=== PATIENT | male | born 1940 | race Caucasian/White ===

== ENCOUNTER 2018-01-16 08:58 | Outpatient (CLI) | payer MEDICARE ==
[2018-01-15 12:37] LABS: BASOPHILS % (AUTO) 0.2 % (0-1); EOSINOPHILS # (AUTO) 0.1 X10'3 (0-0.9); EOSINOPHILS % (AUTO) 1.4 % (0-6); HEMATOCRIT 45.1 % (42.0-52.0); HEMOGLOBIN 15.6 g/dl (14.0-17.9); LYMPHOCYTES # (AUTO) 1.5 X10'3 (1.1-4.8); LYMPHOCYTES % (AUTO) 19.9 % (21-51); MEAN CORPUSCULAR HEMOGLOBIN 35.1 PG (27.0-31.0); MEAN CORPUSCULAR HGB CONC 34.6 % (33.0-36.5); MEAN CORPUSCULAR VOLUME 101.3 FL (78-98); MEAN PLATELET VOLUME 8.1 FL (7.4-10.4); MONOCYTES # (AUTO) 0.7 X10'3 (0-0.9); MONOCYTES % (AUTO) 10.2 % (2-12); NEUTROPHILS % (AUTO) 68.3 % (42-75); PLATELET COUNT 178 X10'3 (140-440); RED BLOOD COUNT 4.45 X10'6 (4.70-6.10); RED CELL DISTRIBUTION WIDTH 13.7 % (11.5-14.5); WHITE BLOOD COUNT 7.3 X10'3 (4.5-11.0)
[2018-01-15 12:52] LABS: ALANINE AMINOTRANSFERASE 24 U/L (12-78); ALBUMIN 3.6 G/DL (3.4-5.0); ALKALINE PHOSPHATASE 62 IU/L (46-116); ANION GAP 12 (8-16); ASPARTATE AMINO TRANSFERASE 18 U/L (10-37); BILIRUBIN,TOTAL 0.7 MG/DL (0.1-1.0); BLOOD UREA NITROGEN 15 MG/DL (7-18); BUN/CREATININE RATIO 12.7 (5.4-32.0); CALCIUM 9.5 MG/DL (8.5-10.1); CHLORIDE 104 MMOL/L (99-107); CREATININE 1.18 MG/DL (0.60-1.10); GLUCOSE 101 MG/DL (70-104); POTASSIUM 4.1 MMOL/L (3.5-5.1); SODIUM 141 MMOL/L (135-145); TOTAL CARBON DIOXIDE 25.4 MMOL/L (24-32); TOTAL PROTEIN 7.2 G/DL (6.4-8.2); eGFR 60 ML/MIN
[2018-01-16] MEDS ORDERED: iohexol 350MG/ML 100ml bottle IV ONE (09:13)
== END 2018-01-16 23:59 | disposition home or self-care (01) ==
LOC: 64 CT 08:58
PROVIDERS: ATTEND Surgery
DX: I65.21 Occlusion and stenosis of right carotid artery (principal); H54.7 Unspecified visual loss
CPT/HCPCS: 36415; 70498; 80053; 85025; J7030; Q9967

== ENCOUNTER 2018-01-23 07:36 | Inpatient (IN) | payer MEDICARE ==
[~2018-01-23] VITALS: Ht 180.3 cm; Wt 82.1 kg
[2018-01-23] VITALS (27 sets, daily range): BP systolic 108–189; BP diastolic 54–91
[~2018-01-23 07:36] MED LIST: ASPI-1265 PO; ATOR10TA PO; famotidine 20mg tablet PO ONE; ringers solution, lacted 1,000 ML IV SCH
[2018-01-23] MEDS ORDERED: metoprolol tartrate 1mg/ml inj IV PRN (08:30)
[2018-01-23] MEDS ORDERED: regadenoson 0.4mg/5ml syringe IV PRN (08:30)
[2018-01-23] MEDS ORDERED: nitroGLYCERIN 0.4mg SUBLingual tab SL PRN (08:30)
[2018-01-23] MEDS ORDERED: CAFFEINE CITRATE 60 MG/3 ML injection vial IV PRN (08:30)
[2018-01-23] MEDS ORDERED: CAFFEINE CITRATE 60 MG/3 ML injection vial IV ONE (09:32)
[2018-01-23] MEDS ORDERED: regadenoson 0.4mg/5ml syringe IV ONE (09:32)
[2018-01-23] MEDS ORDERED: cefazolin/dext.iso 2gm/50ml 50 ML IV ONE (11:10)
[2018-01-23] MEDS ORDERED: phenylephrine inj 10 MG in normal saline 250ml IV soln 250 ML IV PRN ×2 (14:37→20:28)
[2018-01-23 15:19] LABS: PRE OP PROTIME 10.2 SECONDS (9.0-12.0)
[2018-01-23] MEDS ORDERED: heparin 10,000 units/1 ML INJ ONE (15:53)
[2018-01-23] MEDS ORDERED: LIDOcaine 1% (10mg/ml) 2ml vial ONE (15:53)
[2018-01-23] MEDS ORDERED: ceFAZolin 1000mg inj ONE (15:54)
[2018-01-23] MEDS ORDERED: LIDOcaine 1% 30ml preserv. free vial ONE (16:25)
[2018-01-23] MEDS ORDERED: albuterol 2.5 MG/3 ML nebule NEB ONE (17:00)
[2018-01-23] MEDS ORDERED: fentaNYL /PF 50mcg/ml 5ml ampule ONE (17:03)
[2018-01-23] MEDS ORDERED: esmolol 10mg/ml inj IV ONE (17:21)
[2018-01-23] MEDS ORDERED: ondansetron/PF 4mg/2ml inj ONE ×2 (17:21→20:16)
[2018-01-23] MEDS ORDERED: sevoflurane 250ml liquid IH ONE (17:21)
[2018-01-23] MEDS ORDERED: glycopyrrolate 0.2mg/ml inj ONE (20:16)
[2018-01-23] MEDS ORDERED: rocuronium 10mg/ml inj IV ONE (20:16)
[2018-01-23] MEDS ORDERED: LIDOcaine 2% 5ml jelly ONE (20:16)
[2018-01-23] MEDS ORDERED: propofol inj 20 ML IV ONE (20:16)
[2018-01-23] MEDS ORDERED: neostigmine methylsulfate 1 MG/ML 10ml vial ONE (20:16)
[2018-01-23] MEDS ORDERED: labetalol 5mg/ml 20ml inj. IV ONE (20:16)
[2018-01-23] MEDS ORDERED: epiNEPHrine 1 mg/ml inj ONE (20:16)
[2018-01-23] MEDS ORDERED: phenylephrine 10mg/ml inj. ONE (20:16)
[2018-01-23] MEDS ORDERED: nitroGLYCERIN-Tridil 50MG/D5W 250 ML IV PRN (20:28)
[2018-01-23] MEDS ORDERED: ringers solution, lacted 1,000 ML IV SCH (20:28)
[2018-01-23] MEDS ORDERED: ondansetron/PF 4mg/2ml inj IV PRN (20:30)
[2018-01-23] MEDS ORDERED: HYDROmorphone 1 mg/ml syringe IV PRN (20:30)
[2018-01-23] MEDS ORDERED: morphine 4 MG/ML inj SYRINge IV PRN (20:30)
[2018-01-23] MEDS: HYDROmorphone 1 mg/ml syringe IV PRN (20:34)
[2018-01-23] MEDS ORDERED: aspirin 325mg tablet PO ONE (20:40)
[2018-01-23] MEDS ORDERED: clopidogrel 75mg tablet PO SCH (21:00)
[2018-01-23] MEDS: HYDROcodone/acetaminophen 10/325mg tab PO PRN (21:49)
[2018-01-23] MEDS: potassium CL 20mEq in D5-1/2NS 1,000 ML IV SCH (21:49)
[2018-01-23] MEDS: ceFAZolin 1GM/D5W- ADD-VANTAGE 50 ML IV SCH (23:57)
[2018-01-24] VITALS (24 sets, daily range): BP systolic 116–170; BP diastolic 52–87
[2018-01-24] MEDS ORDERED: ceFAZolin inj. 1,000 MG in dextrose 5%-water 50ml 50 ML IV SCH ×2
[2018-01-24] MEDS: HYDROmorphone 1 mg/ml syringe IV PRN (00:25)
[2018-01-24] MEDS: potassium CL 20mEq in D5-1/2NS 1,000 ML IV SCH ×2 (05:23→14:22)
[2018-01-24] MEDS: ceFAZolin 1GM/D5W- ADD-VANTAGE 50 ML IV SCH (07:33)
[2018-01-24] MEDS: clopidogrel 75mg tablet PO SCH (07:33)
[2018-01-24 11:32] LABS: BASOPHILS % (AUTO) 0.1 % (0-1); EOSINOPHILS # (AUTO) 0.1 X10'3 (0-0.9); EOSINOPHILS % (AUTO) 1.7 % (0-6); HEMATOCRIT 35.4 % (42.0-52.0); HEMOGLOBIN 12.2 g/dl (14.0-17.9); LYMPHOCYTES % (AUTO) 14.3 % (21-51); MEAN CORPUSCULAR HGB CONC 34.4 % (33.0-36.5); MEAN CORPUSCULAR VOLUME 101.7 FL (78-98); MEAN PLATELET VOLUME 8.6 FL (7.4-10.4); MONOCYTES # (AUTO) 0.5 X10'3 (0-0.9); MONOCYTES % (AUTO) 6.7 % (2-12); NEUTROPHILS # (AUTO) 5.3 X10'3 (1.8-7.7); NEUTROPHILS % (AUTO) 77.2 % (42-75); PLATELET COUNT 163 X10'3 (140-440); RED BLOOD COUNT 3.48 X10'6 (4.70-6.10); RED CELL DISTRIBUTION WIDTH 13.2 % (11.5-14.5); WHITE BLOOD COUNT 6.9 X10'3 (4.5-11.0)
[2018-01-24] MEDS: amLODIPine 2.5mg tablet PO SCH (12:05)
[2018-01-24] MEDS: HYDROcodone/acetaminophen 10/325mg tab PO PRN ×2 (12:05→19:21)
[2018-01-25] VITALS (26 sets, daily range): BP systolic 124–182; BP diastolic 56–90
[2018-01-25] MEDS: nitroGLYCERIN-Tridil 50MG/D5W 250 ML IV PRN ×2 (05:44→12:00)
[2018-01-25 05:53] LABS: BASOPHILS % (AUTO) 0.3 % (0-1); EOSINOPHILS # (AUTO) 0.2 X10'3 (0-0.9); EOSINOPHILS % (AUTO) 2.6 % (0-6); HEMATOCRIT 32.7 % (42.0-52.0); HEMOGLOBIN 11.2 g/dl (14.0-17.9); LYMPHOCYTES # (AUTO) 1.3 X10'3 (1.1-4.8); LYMPHOCYTES % (AUTO) 18.6 % (21-51); MEAN CORPUSCULAR HEMOGLOBIN 34.6 PG (27.0-31.0); MEAN CORPUSCULAR HGB CONC 34.3 % (33.0-36.5); MEAN CORPUSCULAR VOLUME 100.9 FL (78-98); MEAN PLATELET VOLUME 8.9 FL (7.4-10.4); MONOCYTES # (AUTO) 0.7 X10'3 (0-0.9); MONOCYTES % (AUTO) 10.9 % (2-12); NEUTROPHILS # (AUTO) 4.6 X10'3 (1.8-7.7); NEUTROPHILS % (AUTO) 67.6 % (42-75); PLATELET COUNT 149 X10'3 (140-440); RED BLOOD COUNT 3.24 X10'6 (4.70-6.10); RED CELL DISTRIBUTION WIDTH 12.9 % (11.5-14.5); WHITE BLOOD COUNT 6.8 X10'3 (4.5-11.0)
[2018-01-25 06:26] LABS: ALANINE AMINOTRANSFERASE 16 U/L (12-78); ALBUMIN 2.4 G/DL (3.4-5.0); ALBUMIN/GLOBULIN RATIO 0.8 (1.1-1.5); ALKALINE PHOSPHATASE 36 IU/L (46-116); ANION GAP 9 (8-16); ASPARTATE AMINO TRANSFERASE 14 U/L (10-37); BLOOD UREA NITROGEN 8 MG/DL (7-18); BUN/CREATININE RATIO 8.9 (5.4-32.0); CALCIUM 7.7 MG/DL (8.5-10.1); CHLORIDE 102 MMOL/L (99-107); GLUCOSE 112 MG/DL (70-104); MAGNESIUM 1.4 MG/DL (1.5-2.4); POTASSIUM 3.7 MMOL/L (3.5-5.1); SODIUM 136 MMOL/L (135-145); TOTAL CARBON DIOXIDE 25.3 MMOL/L (24-32); TOTAL PROTEIN 5.3 G/DL (6.4-8.2); eGFR 82 ML/MIN
[2018-01-25] MEDS: HYDROcodone/acetaminophen 10/325mg tab PO PRN (06:47)
[2018-01-25] MEDS: aspirin 81mg tab.chew PO SCH (07:56)
[2018-01-25] MEDS: amLODIPine 2.5mg tablet PO SCH ×2 (07:56→19:42)
[2018-01-25] MEDS: atorvastatin 10mg tablet PO SCH (07:56)
[2018-01-25] MEDS: clopidogrel 75mg tablet PO SCH (07:56)
[2018-01-25] MEDS: carVEDilol 3.125mg tablet PO SCH ×2 (12:52→19:43)
[2018-01-25] MEDS ORDERED: TERA2CAP4 PO (14:58)
[2018-01-25] MEDS ORDERED: magnesium 4gm in 100ml NS 100 ML IV PRN (18:50)
[2018-01-25] MEDS ORDERED: potassium Cl 20 mEq SR tablet PO PRN ×2 (18:50)
[2018-01-25] MEDS ORDERED: magnesium 1gm/100ml D5W IVPB 100 ML IV PRN (18:50)
[2018-01-25] MEDS: K and/or MAG REPLACEMENT MC SCH (19:00)
[2018-01-25] MEDS: magnesium Cl slow-release 64mg tablet PO PRN (19:43)
[2018-01-26] VITALS (24 sets, daily range): BP systolic 118–177; BP diastolic 64–100
[2018-01-26] MEDS: nitroGLYCERIN-Tridil 50MG/D5W 250 ML IV PRN ×2 (00:06→18:35)
[2018-01-26 05:52] LABS: MAGNESIUM 1.6 MG/DL (1.5-2.4); POTASSIUM 4.2 MMOL/L (3.5-5.1)
[2018-01-26] MEDS: atorvastatin 10mg tablet PO SCH (08:17)
[2018-01-26] MEDS: aspirin 81mg tab.chew PO SCH (08:17)
[2018-01-26] MEDS: amLODIPine 2.5mg tablet PO SCH (08:17)
[2018-01-26] MEDS: clopidogrel 75mg tablet PO SCH (08:17)
[2018-01-26] MEDS: carVEDilol 3.125mg tablet PO SCH (08:17)
[2018-01-26] MEDS: magnesium Cl slow-release 64mg tablet PO PRN (08:30)
[2018-01-26] MEDS ORDERED: carvedilol 6.25mg tablet PO ONE (12:17)
[2018-01-26] MEDS ORDERED: LORazepam 0.5 MG tablet PO PRN (12:30)
[2018-01-26] MEDS ORDERED: amLODIPine 2.5mg tablet PO ONE (12:37)
[2018-01-26] MEDS: potassium CL 20mEq in D5-1/2NS 1,000 ML IV SCH (14:22)
[2018-01-26] MEDS: K and/or MAG REPLACEMENT MC SCH (18:36)
[2018-01-26] MEDS: amLODIPine 5mg tablet PO SCH (19:43)
[2018-01-26] MEDS: carVEDilol 12.5mg tablet PO SCH (19:43)
[2018-01-27] VITALS (19 sets, daily range): BP systolic 90–168; BP diastolic 60–88
[2018-01-27 05:15] LABS: HEMATOCRIT 37.5 % (42.0-52.0); HEMOGLOBIN 13.1 g/dl (14.0-17.9); MEAN CORPUSCULAR HEMOGLOBIN 35.5 PG (27.0-31.0); MEAN CORPUSCULAR VOLUME 101.4 FL (78-98); MEAN PLATELET VOLUME 9.6 FL (7.4-10.4); PLATELET COUNT 168 X10'3 (140-440); RED CELL DISTRIBUTION WIDTH 12.5 % (11.5-14.5); WHITE BLOOD COUNT 7.1 X10'3 (4.5-11.0)
[2018-01-27 05:31] LABS: ALBUMIN 2.8 G/DL (3.4-5.0); ANION GAP 10 (8-16); BLOOD UREA NITROGEN 8 MG/DL (7-18); BUN/CREATININE RATIO 9.1 (5.4-32.0); CALCIUM 8.9 MG/DL (8.5-10.1); CHLORIDE 99 MMOL/L (99-107); CREATININE 0.88 MG/DL (0.60-1.10); GLUCOSE 108 MG/DL (70-104); MAGNESIUM 1.6 MG/DL (1.5-2.4); SODIUM 132 MMOL/L (135-145); TOTAL CARBON DIOXIDE 22.8 MMOL/L (24-32); eGFR 84 ML/MIN
[2018-01-27] MEDS: aspirin 81mg tab.chew PO SCH (07:57)
[2018-01-27] MEDS: amLODIPine 5mg tablet PO SCH ×2 (07:57→19:35)
[2018-01-27] MEDS: carVEDilol 12.5mg tablet PO SCH ×2 (07:57→19:35)
[2018-01-27] MEDS: clopidogrel 75mg tablet PO SCH (07:57)
[2018-01-27] MEDS: atorvastatin 10mg tablet PO SCH (07:57)
[2018-01-27] MEDS: K and/or MAG REPLACEMENT MC SCH (08:00)
[2018-01-27] MEDS ORDERED: nitroGLYCERIN 0.4mg/hour patch TD SCH (15:45)
[2018-01-27] MEDS ORDERED: ATOR10TA PO ×3 (18:49→20:07)
[2018-01-27] MEDS ORDERED: CARV-50 PO ×2 (18:49→20:06)
[2018-01-27] MEDS ORDERED: AMLO5TAB16 PO ×2 (18:49→20:06)
[2018-01-27] MEDS ORDERED: ASPI-1265 PO ×3 (18:49→20:07)
[2018-01-27] MEDS ORDERED: CLOP75TA35 PO ×2 (18:49→20:06)
[2018-01-27] MEDS ORDERED: NIT10P TD ×3 (18:54→20:03)
[2018-01-27] MEDS ORDERED: MAGN64TA10 PO (19:53)
[2018-01-27] MEDS ORDERED: K and/or MAG REPLACEMENT MC (19:53)
[2018-01-27] MEDS ORDERED: HYDR1DIS4 IV (19:53)
[2018-01-27] MEDS ORDERED: HYDR-3972 PO (19:53)
[2018-01-27] MEDS ORDERED: ATI0.5T PO (19:53)
[2018-01-27] MEDS ORDERED: POTA20TA10 PO (19:53)
== END 2018-01-27 19:40 | disposition home or self-care (01) | DRG 39 ==
LOC: PAS IN 07:36 → EDSTATUS 13:00 → ICU 2S 21:11
PROVIDERS: ADMIT Surgery; ATTEND Surgery
PROC: 03CH0ZZ Extirpation of Matter from Right Common Carotid Artery, Open Approach (ICD-10-PCS; 2018-01-23)
PROC: 03CM0ZZ Extirpation of Matter from Right External Carotid Artery, Open Approach (ICD-10-PCS; 2018-01-23)
PROC: 03UK0KZ Supplement Right Internal Carotid Artery with Nonautologous Tissue Substitute, Open Approach (ICD-10-PCS; 2018-01-23)
PROC: 4A02XM4 Measurement of Cardiac Total Activity, External Approach (ICD-10-PCS; 2018-01-23)
PROC: 3E073KZ Introduction of Other Diagnostic Substance into Coronary Artery, Percutaneous Approach (ICD-10-PCS; 2018-01-23)
PROC: 4A10X4G Monitoring of Central Nervous Electrical Activity, Intraoperative, External Approach (ICD-10-PCS; 2018-01-23)
PROC: 03CK0ZZ Extirpation of Matter from Right Internal Carotid Artery, Open Approach (ICD-10-PCS; principal; 2018-01-23 17:21)
DX: I65.21 Occlusion and stenosis of right carotid artery (principal); I35.0 Nonrheumatic aortic (valve) stenosis; I10 Essential (primary) hypertension; E78.5 Hyperlipidemia, unspecified; R93.1 Abnormal findings on diagnostic imaging of heart and coronary circulation; Z88.2 Allergy status to sulfonamides; Z91.19 Patient's noncompliance with other medical treatment and regimen; Z79.82 Long term (current) use of aspirin; Z79.899 Other long term (current) drug therapy; Z86.73 Personal history of transient ischemic attack (TIA), and cerebral infarction without residual deficits; Z87.891 Personal history of nicotine dependence
CPT/HCPCS: 36415; 71045; 78452; 80048; 80053; 83735; 84132; 84484; 85025; 85027; 85610; 85730; 86885; 86900; 86901; 87070; 88300; 93017; 93306; 94640; 94760; 95813; 95816; A6213; A6257; A6258; A6449; A7000; A9500; C1768; C1887; J0171; J0690; J1170; J1644; J2370; J2405; J2704; J2710; J2785; J3010; J3490; J7030; J7060; J7120

== ENCOUNTER 2018-03-26 05:36 | Inpatient (IN) | payer MEDICARE ==
[2018-03-24 14:42] LABS: BASOPHILS % (AUTO) 0.7 % (0-1); EOSINOPHILS # (AUTO) 0.2 X10'3 (0-0.9); EOSINOPHILS % (AUTO) 3.3 % (0-6); LYMPHOCYTES # (AUTO) 1.5 X10'3 (1.1-4.8); MEAN CORPUSCULAR HEMOGLOBIN 34.9 PG (27.0-31.0); MEAN CORPUSCULAR HGB CONC 34.1 % (33.0-36.5); MEAN CORPUSCULAR VOLUME 102.2 FL (78-98); MEAN PLATELET VOLUME 8.2 FL (7.4-10.4); MONOCYTES # (AUTO) 0.6 X10'3 (0-0.9); MONOCYTES % (AUTO) 10.1 % (2-12); NEUTROPHILS # (AUTO) 3.9 X10'3 (1.8-7.7); NEUTROPHILS % (AUTO) 61.9 % (42-75); PRE OP HEMATOCRIT 40.3 % (42.0-52.0); PRE OP HEMOGLOBIN 13.7 g/dL (14.0-17.9); PRE OP PLATELET COUNT 260 X10'3 (140-440); RED BLOOD COUNT 3.94 X10'6 (4.70-6.10); RED CELL DISTRIBUTION WIDTH 14.6 % (11.5-14.5)
[2018-03-24 14:43] LABS: CLARITY,URINE CLEAR (Clear); COLOR,URINE YELLOW (Yellow); GLUCOSE, URINE NEGATIVE (Neg); KETONES,URINE NEGATIVE (Neg); LEUKOCYTE ESTERASE ,URINE NEGATIVE (Neg); NITRITES, URINE NEGATIVE (Neg); OCCULT BLOOD,URINE NEGATIVE (Neg); PROTEIN,URINE NEGATIVE (Neg)
[2018-03-24 14:45] LABS: UA COLLECTION TYPE CLN CATCH MIDSTREAM
[2018-03-24 14:53] LABS: PRE OP INR 0.9 INR; PRE OP PROTIME 9.5 SECONDS (9.0-12.0)
[2018-03-24 14:59] LABS: ALBUMIN 3.6 G/DL (3.4-5.0); ALKALINE PHOSPHATASE 70 IU/L (46-116); BLOOD UREA NITROGEN 13 MG/DL (7-18); BUN/CREATININE RATIO 12.7 (5.4-32.0); CALCIUM 9.1 MG/DL (8.5-10.1); CHLORIDE 104 MMOL/L (99-107); CREATININE 1.02 MG/DL (0.60-1.10); PRE OP ALT 24 U/L (30-65); PRE OP ANION GAP 9 (8-16); PRE OP AST 20 U/L (10-37); PRE OP BILIRUB, TOTAL 0.7 MG/DL (0.0-1.0); PRE OP GLUCOSE 103 MG/DL (70-104); PRE OP POTASSIUM 3.8 MMOL/L (3.4-5.1); PRE OP SODIUM 140 MMOL/L (135-145); TOTAL CARBON DIOXIDE 27.3 MMOL/L (24-32); TOTAL PROTEIN 7.3 G/DL (6.4-8.2); eGFR 71 ML/MIN
[2018-03-24 15:10] LABS: HEMOGLOBIN A1C 4.6 % (4.5-6.2)
[2018-03-25 05:16] LABS: ABG BASE EXCESS 2.2 mmol/L (-2.0-3.0); ABG HCO3 25.7 mmol/L (22.0-26.0); ABG PCO2 (T) 36.6 mmHg (35.0-48.0); ABG PH (T) 7.465 (7.350-7.450); ABG PO2 (T) 69.1 mmHg (83-108); ALLEN'S TEST Positive; FCOHb 4.9 % (0.5-1.5); FMetHb 0.3 % (0.3-1.12); FO2Hb 90.1 % (94-100); TOTAL HEMOGLOBIN 13.6 G/dl (14.0-18.0)
[~2018-03-26] VITALS: Ht 152.4 cm; Wt 73.7 kg
[2018-03-26] VITALS (19 sets, daily range): BP systolic 111–168; BP diastolic 42–70
[2018-03-26] MEDS: insulin regular, human 100 UNIT in normal saline 100ml IV soln 99 ML IV SCH ×8 (05:30→20:18)
[~2018-03-26 05:36] MED LIST changes: +AMLO5TAB16 PO; +ASPI-1053 PO; -ASPI-1265 PO; -ATOR10TA PO; +ATOR10TA70 PO; +CARV-50 PO; +CLOP75TA35 PO; +Cefazolin 2GM/50ML dext iso,osmotic IVPB IV ONE; +DOCUMENT DATE & TIME OF BETA-BLOCKER PO ONE; +ERGO500014 PO; +LORazepam 2 mg/ml vial IV ONE; +TERA2CAP4 PO; +VANCOMYCIN INJ 1000 MG in NORMAL SALINE 250ml IV.SOLN IV ONE; +albuterol 2.5 MG/3 ML nebule NEB ONE; +dextrose 50%-water 50ml dispensing syringe IV PRN; +insulin Lispro (HumaLOG) vial - multi-dose SQ PRN; +metoprolol tartrate 12.5mg (1/2 tablet) PO ONE; +mupirocin 2% nasal ointment 1gm UD NS ONE
[2018-03-26] MEDS ORDERED: LIDOcaine 1% (10mg/ml) 2ml vial ONE (05:45)
[2018-03-26] MEDS ORDERED: phenylephrine 10mg/ml inj. ONE ×2 (06:55)
[2018-03-26] MEDS ORDERED: heparin 10,000 units/1 ML INJ ONE (06:55)
[2018-03-26] MEDS ORDERED: potassium Cl 2 mEq/ml inj IV ONE (06:55)
[2018-03-26] MEDS ORDERED: NORepinephrine bitartrate 8 MG in NS 250 ML BAG (32 mcg/ml) IV ONE (06:55)
[2018-03-26] MEDS ORDERED: sevoflurane 250ml liquid IH ONE (06:55)
[2018-03-26] MEDS ORDERED: sodium bicarbonate (8.4%) 1 mEq/ml syringe ONE (06:55)
[2018-03-26] MEDS ORDERED: heparin 1,000 units/ml 10ml inj ONE (06:55)
[2018-03-26] MEDS ORDERED: magnesium sulf 1 GM/2 ML ONE (06:55)
[2018-03-26] MEDS ORDERED: LIDOcaine 2% (20 mg/ml) 5ml cardiac syringe ONE (06:55)
[2018-03-26] MEDS ORDERED: methylPREDNISolone sod succ 1000mg vial ONE (06:55)
[2018-03-26] MEDS ORDERED: protamine sulf. 10mg/ml inj. IV ONE (06:55)
[2018-03-26] MEDS ORDERED: aminocaproic acid 250 MG/1 ML inj. ONE (06:55)
[2018-03-26] MEDS ORDERED: calcium chloride 100 MG/1 ML inj IV ONE (06:55)
[2018-03-26] MEDS ORDERED: albumin (human) 25% 100 ML IV solution IV ONE (06:55)
[2018-03-26] MEDS ORDERED: SUFENTANIL CITRATE 50 MCG/ML 2ml ampule IV ONE (07:01)
[2018-03-26] MEDS ORDERED: MIDAZolam 1mg/ml 10ml vial ONE (07:01)
[2018-03-26] MEDS ORDERED: etomidate 2mg/ml inj. ONE (07:02)
[2018-03-26] MEDS ORDERED: pancuronium br 1mg/ml inj IV ONE (07:02)
[2018-03-26 07:41] LABS: ABG BASE EXCESS -3.8 mmol/L (-2.0-3.0); ABG HCO3 20.7 mmol/L (22.0-26.0); ABG OXYGEN SATURATION 99.9 % (95-98); ABG PCO2 35.4 mmHg (35.0-45.0); ABG PH 7.384 (7.350-7.450); ABG PO2 483.4 mmHg (60.0-100.0); CL (ABG) 104 mmol/L (99-107); FCOHb 1.1 % (0.5-1.5); FMetHb 0.1 % (0.3-1.12); FO2Hb 98.7 % (94-100); GLUCOSE (ABG) 96 mg/dl (70-105); IONIZED CA (ABG) 1.09 mmol/L (1.03-1.32); K (ABG) 3.6 mmol/L (3.3-5.1); NA (ABG) 134 mmol/L (135-145); TOTAL HEMOGLOBIN 12.5 G/dl (14.0-18.0)
[2018-03-26 08:06] LABS: ACT @ 1.70 U 301 SEC (193-297); ACT @ 2.84 U 435 SEC (260-420); BASELINE ACT 144 SEC (101-148); PATIENT WEIGHT 77.0k KG
[2018-03-26] MEDS ORDERED: papaverine 30 mg/ml 2ml inj. IA ONE (08:22)
[2018-03-26 08:31] LABS: ABG BASE EXCESS VENOUS -2.8 mmol/L; ABG PO2 VENOUS 53.5 mmHg; CL (ABG) 104 mmol/L (99-107); FCOHb VENOUS 0.8 %; FHHb VENOUS 16.5 %; FMetHb VENOUS 0.3 %; FO2Hb VENOUS 82.4 %; GLUCOSE (ABG) 83 mg/dl (70-105); IONIZED CA (ABG) 1.09 mmol/L (1.03-1.32); K (ABG) 3.5 mmol/L (3.3-5.1); NA (ABG) 135 mmol/L (135-145); TOTAL HEMOGLOBIN 11.4 G/dl (14.0-18.0)
[2018-03-26 09:00] LABS: ABG BASE EXCESS -2.4 mmol/L (-2.0-3.0); ABG OXYGEN SATURATION 99.6 % (95-98); ABG PCO2 35.8 mmHg (35.0-45.0); ABG PH 7.406 (7.350-7.450); ABG PO2 406.6 mmHg (60.0-100.0); CL (ABG) 103 mmol/L (99-107); FMetHb 0.3 % (0.3-1.12); FO2Hb 98.3 % (94-100); GLUCOSE (ABG) 80 mg/dl (70-105); IONIZED CA (ABG) 0.96 mmol/L (1.03-1.32); K (ABG) 4.5 mmol/L (3.3-5.1); NA (ABG) 131 mmol/L (135-145)
[2018-03-26 09:21] LABS: ABG BASE EXCESS 0.9 mmol/L (-2.0-3.0); ABG HCO3 26.8 mmol/L (22.0-26.0); ABG OXYGEN SATURATION 99.5 % (95-98); ABG PCO2 49.6 mmHg (35.0-45.0); ABG PO2 392.9 mmHg (60.0-100.0); CL (ABG) 103 mmol/L (99-107); FCOHb 0.7 % (0.5-1.5); FMetHb 0.2 % (0.3-1.12); FO2Hb 98.6 % (94-100); GLUCOSE (ABG) 98 mg/dl (70-105); IONIZED CA (ABG) 0.98 mmol/L (1.03-1.32); K (ABG) 4.2 mmol/L (3.3-5.1); NA (ABG) 133 mmol/L (135-145); TOTAL HEMOGLOBIN 8.6 G/dl (14.0-18.0)
[2018-03-26 09:40] LABS: ABG BASE EXCESS -1.1 mmol/L (-2.0-3.0); ABG HCO3 25.6 mmol/L (22.0-26.0); ABG OXYGEN SATURATION 99.5 % (95-98); ABG PCO2 53.8 mmHg (35.0-45.0); ABG PH 7.296 (7.350-7.450); CL (ABG) 103 mmol/L (99-107); FCOHb 0.6 % (0.5-1.5); FMetHb 0.3 % (0.3-1.12); FO2Hb 98.6 % (94-100); GLUCOSE (ABG) 109 mg/dl (70-105); IONIZED CA (ABG) 1.01 mmol/L (1.03-1.32); K (ABG) 4.3 mmol/L (3.3-5.1); NA (ABG) 134 mmol/L (135-145); TOTAL HEMOGLOBIN 8.8 G/dl (14.0-18.0)
[2018-03-26 09:46] LABS: ABG BASE EXCESS 13.4 mmol/L (-2.0-3.0); ABG HCO3 38.7 mmol/L (22.0-26.0); ABG OXYGEN SATURATION 99.1 % (95-98); ABG PH 7.465 (7.350-7.450); ABG PO2 347.7 mmHg (60.0-100.0); CL (ABG) 101 mmol/L (99-107); FCOHb 0.4 % (0.5-1.5); FMetHb 0.3 % (0.3-1.12); FO2Hb 98.4 % (94-100); GLUCOSE (ABG) 106 mg/dl (70-105); IONIZED CA (ABG) 0.86 mmol/L (1.03-1.32); NA (ABG) 144 mmol/L (135-145)
[2018-03-26 10:10] LABS: ABG BASE EXCESS 0.3 mmol/L (-2.0-3.0); ABG HCO3 23.3 mmol/L (22.0-26.0); ABG OXYGEN SATURATION 99.4 % (95-98); ABG PCO2 30.5 mmHg (35.0-45.0); ABG PH 7.501 (7.350-7.450); ABG PO2 408.2 mmHg (60.0-100.0); CL (ABG) 103 mmol/L (99-107); FCOHb 0.9 % (0.5-1.5); FMetHb 0.6 % (0.3-1.12); FO2Hb 97.9 % (94-100); GLUCOSE (ABG) 107 mg/dl (70-105); K (ABG) 4.6 mmol/L (3.3-5.1); NA (ABG) 131 mmol/L (135-145); TOTAL HEMOGLOBIN 7.3 G/dl (14.0-18.0)
[2018-03-26] MEDS ORDERED: albumin (Human) 5% 250ml 250 ML IV ONE ×2 (10:32→10:48)
[2018-03-26] MEDS ORDERED: epiNEPHrine 1 mg/ml inj ONE (10:32)
[2018-03-26] MEDS ORDERED: DOPamine 400mg/D5W 250ml 250 ML IV PRN (11:12)
[2018-03-26] MEDS ORDERED: niCARDipine/sod cl 20mg/200ml 200 ML IV PRN (11:12)
[2018-03-26] MEDS ORDERED: nitroGLYCERIN-Tridil 50MG/D5W 250 ML IV PRN (11:12)
[2018-03-26] MEDS ORDERED: NORepinephrine 8mg/ 250ml NS 250 ML IV PRN (11:12)
[2018-03-26] MEDS ORDERED: morphine 4 MG/ML inj SYRINge IV PRN (11:15)
[2018-03-26] MEDS ORDERED: sodium phosphate inj. 15 MMOL in dextrose 5%-water 150 ML IV PRN (11:15)
[2018-03-26] MEDS ORDERED: acetaminophen 325mg tablet PO PRN (11:15)
[2018-03-26] MEDS ORDERED: magnesium hydroxide 30ml (MOM) UD suspension PO PRN (11:15)
[2018-03-26] MEDS ORDERED: normal saline 250ml IV soln 250 ML IV PRN (11:15)
[2018-03-26] MEDS ORDERED: potassium Cl 20mEq/100mL bag 100 ML IV PRN ×3 (11:15)
[2018-03-26] MEDS ORDERED: insulin regular, human inj. 100 UNITS in normal saline 100ml IV soln 100 ML IV SCH ×2 (11:15)
[2018-03-26] MEDS ORDERED: Neutra Phos packet PO PRN (11:15)
[2018-03-26] MEDS ORDERED: magnesium 4gm in 100ml NS 100 ML IV PRN (11:15)
[2018-03-26] MEDS ORDERED: ondansetron/PF 4mg/2ml inj IV PRN (11:15)
[2018-03-26] MEDS ORDERED: dextrose 50%-water 50ml dispensing syringe IV PRN (11:15)
[2018-03-26] MEDS ORDERED: magnesium 1gm/100ml D5W IVPB 100 ML IV PRN (11:15)
[2018-03-26] MEDS ORDERED: metoclopramide 5 mg/ml inj IV PRN (11:15)
[2018-03-26] MEDS ORDERED: HYDROcodone/acetaminophen 10/325mg tab PO PRN (11:15)
[2018-03-26] MEDS ORDERED: sodium phosphate inj. 30 MMOL in dextrose 5%-water 250 ML IV PRN (11:15)
[2018-03-26] MEDS ORDERED: albumin (Human) 5% 250ml 500 ML IV ONE (11:22)
[2018-03-26] MEDS: albumin (Human) 5% 250ml 250 ML IV PRN ×3 (11:25→14:49)
[2018-03-26 11:36] LABS: ABG BASE EXCESS -1.3 mmol/L (-2.0-3.0); ABG HCO3 22.6 mmol/L (22.0-26.0); ABG OXYGEN SATURATION 99.1 % (95-98); ABG PH (T) 7.428 (7.350-7.450); ABG PO2 (T) 376.2 mmHg (83-108); FCOHb 0.3 % (0.5-1.5); FMetHb 0.3 % (0.3-1.12); FO2Hb 98.5 % (94-100); PEEP 5 cm H2O; RESPIRATORY RATE 12 b/min; TIDAL VOLUME 600 mL; TOTAL HEMOGLOBIN 11.4 G/dl (14.0-18.0)
[2018-03-26 11:45] LABS: BASOPHILS % (AUTO) 0.3 % (0-1); EOSINOPHILS # (AUTO) 0.1 X10'3 (0-0.9); EOSINOPHILS % (AUTO) 0.9 % (0-6); HEMATOCRIT 30.5 % (42.0-52.0); HEMOGLOBIN 10.6 g/dl (14.0-17.9); LYMPHOCYTES # (AUTO) 0.6 X10'3 (1.1-4.8); LYMPHOCYTES % (AUTO) 7.8 % (21-51); MEAN CORPUSCULAR HEMOGLOBIN 36.2 PG (27.0-31.0); MEAN CORPUSCULAR VOLUME 103.4 FL (78-98); MEAN PLATELET VOLUME 8.1 FL (7.4-10.4); MONOCYTES # (AUTO) 0.4 X10'3 (0-0.9); MONOCYTES % (AUTO) 4.8 % (2-12); NEUTROPHILS # (AUTO) 6.4 X10'3 (1.8-7.7); NEUTROPHILS % (AUTO) 86.2 % (42-75); PLATELET COUNT 123 X10'3 (140-440); RED BLOOD COUNT 2.94 X10'6 (4.70-6.10); RED CELL DISTRIBUTION WIDTH 13.4 % (11.5-14.5); WHITE BLOOD COUNT 7.5 X10'3 (4.5-11.0)
[2018-03-26 11:48] LABS: INR 1.1 INR; PARTIAL THROMBOPLASTIN TIME 30 SECONDS (22-32); PROTHROMBIN TIME 11.6 SECONDS (9.0-12.0)
[2018-03-26 11:55] LABS: ACTIVATED CLOTTING TIME 120 SEC (101-148)
[2018-03-26 12:04] LABS: ALANINE AMINOTRANSFERASE 16 U/L (12-78); ALBUMIN 2.6 G/DL (3.4-5.0); ALBUMIN/GLOBULIN RATIO 1.4 (1.1-1.5); ALKALINE PHOSPHATASE 35 IU/L (46-116); ANION GAP 12 (8-16); ASPARTATE AMINO TRANSFERASE 35 U/L (10-37); BILIRUBIN,TOTAL 0.6 MG/DL (0.1-1.0); BLOOD UREA NITROGEN 13 MG/DL (7-18); BUN/CREATININE RATIO 14.4 (5.4-32.0); CALCIUM 7.7 MG/DL (8.5-10.1); CHLORIDE 106 MMOL/L (99-107); GLUCOSE 121 MG/DL (70-104); MAGNESIUM 3.2 MG/DL (1.5-2.4); PHOSPHORUS 2.6 MG/DL (2.3-4.5); SODIUM 140 MMOL/L (135-145); TOTAL CARBON DIOXIDE 22.3 MMOL/L (24-32); TOTAL PROTEIN 4.4 G/DL (6.4-8.2); eGFR 82 ML/MIN
[2018-03-26 12:06] LABS: POTASSIUM 4.5 MMOL/L (3.5-5.1)
[2018-03-26] MEDS: sodium chloride 0.45% 1,000 ML IV SCH (12:50)
[2018-03-26] MEDS: insulin Lispro (HumaLOG) vial - multi-dose SQ SCH ×2 (12:51→17:49)
[2018-03-26] MEDS: morphine 4 MG/ML inj SYRINge IV PRN ×3 (15:17→22:05)
[2018-03-26] MEDS: ceFAZolin 1GM/D5W- ADD-VANTAGE 50 ML IV SCH (16:26)
[2018-03-26 17:28] LABS: BASOPHILS % (AUTO) 0 % (0-1); EOSINOPHILS % (AUTO) 0 % (0-6); HEMATOCRIT 26.7 % (42.0-52.0); LYMPHOCYTES # (AUTO) 0.4 X10'3 (1.1-4.8); LYMPHOCYTES % (AUTO) 5.8 % (21-51); MEAN CORPUSCULAR HEMOGLOBIN 34.9 PG (27.0-31.0); MEAN CORPUSCULAR HGB CONC 33.8 % (33.0-36.5); MEAN CORPUSCULAR VOLUME 103.1 FL (78-98); MEAN PLATELET VOLUME 8.2 FL (7.4-10.4); MONOCYTES # (AUTO) 0.3 X10'3 (0-0.9); MONOCYTES % (AUTO) 4.5 % (2-12); NEUTROPHILS # (AUTO) 6.8 X10'3 (1.8-7.7); NEUTROPHILS % (AUTO) 89.7 % (42-75); PLATELET COUNT 110 X10'3 (140-440); RED BLOOD COUNT 2.59 X10'6 (4.70-6.10); RED CELL DISTRIBUTION WIDTH 14.8 % (11.5-14.5); WHITE BLOOD COUNT 7.6 X10'3 (4.5-11.0)
[2018-03-26 17:41] LABS: ALBUMIN 3.4 G/DL (3.4-5.0); ANION GAP 10 (8-16); BLOOD UREA NITROGEN 17 MG/DL (7-18); CALCIUM 7.8 MG/DL (8.5-10.1); CHLORIDE 108 MMOL/L (99-107); CREATININE 1.06 MG/DL (0.60-1.10); GLUCOSE 122 MG/DL (70-104); SODIUM 144 MMOL/L (135-145); eGFR 68 ML/MIN
[2018-03-26 18:53] LABS: POTASSIUM 4.4 MMOL/L (3.5-5.1)
[2018-03-26] MEDS: docusate sod 100mg capsule PO SCH (19:28)
[2018-03-26] MEDS: mupirocin 2% nasal ointment 1gm UD NS SCH (19:45)
[2018-03-26] MEDS: vancomycin/NS 1 GM ADD-VANTAGE 250 ML IV SCH (21:05)
[2018-03-26 21:55] LABS: ABG BASE EXCESS -3.4 mmol/L (-2.0-3.0); ABG HCO3 20.3 mmol/L (22.0-26.0); ABG OXYGEN SATURATION 96.9 % (95-98); ABG PCO2 (T) 30.6 mmHg (35.0-48.0); ABG PH (T) 7.437 (7.350-7.450); ABG PO2 (T) 97.6 mmHg (83-108); FCOHb 0.3 % (0.5-1.5); FMetHb 0.2 % (0.3-1.12); FO2Hb 96.4 % (94-100); MINUTE VOLUME 7 L/min; PATIENT TEMPERATURE 36.4; PEEP 5 cm H2O; RESPIRATORY RATE 0 b/min; RESPIRATORY RATE (OBSERVED) 11 b/min; TIDAL VOLUME 438 mL; TOTAL HEMOGLOBIN 9.3 G/dl (14.0-18.0)
[2018-03-27] VITALS (24 sets, daily range): BP systolic 102–166; BP diastolic 42–85
[2018-03-27] MEDS: ceFAZolin 1GM/D5W- ADD-VANTAGE 50 ML IV SCH ×3 (00:18→16:39)
[2018-03-27] MEDS: morphine 4 MG/ML inj SYRINge IV PRN ×3 (00:24→05:11)
[2018-03-27 02:49] LABS: BASOPHILS % (AUTO) 0 % (0-1); EOSINOPHILS % (AUTO) 0 % (0-6); HEMATOCRIT 23.9 % (42.0-52.0); HEMOGLOBIN 8.1 g/dl (14.0-17.9); LYMPHOCYTES # (AUTO) 0.5 X10'3 (1.1-4.8); LYMPHOCYTES % (AUTO) 5.6 % (21-51); MEAN CORPUSCULAR HGB CONC 33.8 % (33.0-36.5); MEAN CORPUSCULAR VOLUME 103.5 FL (78-98); MEAN PLATELET VOLUME 9.1 FL (7.4-10.4); MONOCYTES # (AUTO) 0.4 X10'3 (0-0.9); MONOCYTES % (AUTO) 4.8 % (2-12); NEUTROPHILS # (AUTO) 7.6 X10'3 (1.8-7.7); NEUTROPHILS % (AUTO) 89.6 % (42-75); PLATELET COUNT 106 X10'3 (140-440); RED BLOOD COUNT 2.31 X10'6 (4.70-6.10); RED CELL DISTRIBUTION WIDTH 14.8 % (11.5-14.5); WHITE BLOOD COUNT 8.4 X10'3 (4.5-11.0)
[2018-03-27 02:56] LABS: INR 1.1 INR; PARTIAL THROMBOPLASTIN TIME 25 SECONDS (22-32)
[2018-03-27 03:09] LABS: ALANINE AMINOTRANSFERASE 18 U/L (12-78); ALBUMIN 3.3 G/DL (3.4-5.0); ALBUMIN/GLOBULIN RATIO 1.9 (1.1-1.5); ALKALINE PHOSPHATASE 28 IU/L (46-116); ANION GAP 8 (8-16); ASPARTATE AMINO TRANSFERASE 33 U/L (10-37); BILIRUBIN,TOTAL 0.9 MG/DL (0.1-1.0); BLOOD UREA NITROGEN 22 MG/DL (7-18); BUN/CREATININE RATIO 20.2 (5.4-32.0); CHLORIDE 110 MMOL/L (99-107); CREATININE 1.09 MG/DL (0.60-1.10); GLUCOSE 106 MG/DL (70-104); MAGNESIUM 2.6 MG/DL (1.5-2.4); PHOSPHORUS 5.3 MG/DL (2.3-4.5); POTASSIUM 4.7 MMOL/L (3.5-5.1); SODIUM 144 MMOL/L (135-145); TOTAL CARBON DIOXIDE 25.6 MMOL/L (24-32); eGFR 66 ML/MIN
[2018-03-27] MEDS ORDERED: ipratropium/albuterol 3ml nebule NEB PRN (05:05)
[2018-03-27] MEDS ORDERED: metoprolol tartrate 12.5mg (1/2 tablet) PO SCH (08:00)
[2018-03-27] MEDS: docusate sod 100mg capsule PO SCH ×2 (08:20→20:00)
[2018-03-27] MEDS: pantoprazole 40mg Tablet.DR PO SCH (08:20)
[2018-03-27] MEDS: mupirocin 2% nasal ointment 1gm UD NS SCH ×2 (08:20→20:13)
[2018-03-27] MEDS: atorvastatin 10mg tablet PO SCH (08:20)
[2018-03-27] MEDS: vancomycin/NS 1 GM ADD-VANTAGE 250 ML IV SCH ×2 (08:20→20:13)
[2018-03-27] MEDS: aspirin 325mg tablet, delayed-release (Ecotrin) PO SCH (08:20)
[2018-03-27] MEDS: insulin Lispro (HumaLOG) vial - multi-dose SQ SCH ×2 (08:40→18:54)
[2018-03-27] MEDS ORDERED: metoprolol tartrate 12.5mg (1/2 tablet) PO ONE (10:15)
[2018-03-27] MEDS: HYDROcodone/acetaminophen 10/325mg tab PO PRN (12:21)
[2018-03-27] MEDS ORDERED: dextrose ORAL solution 15 GM/59 ML bottle PO PRN ×2 (17:40)
[2018-03-27] MEDS ORDERED: MESSAGE TO PHARMACY PO ONE (17:40)
[2018-03-27] MEDS ORDERED: glucagon, human recombinant 1mg kit SUBCUT PRN (17:40)
[2018-03-27] MEDS ORDERED: dextrose 50%-water 50ml dispensing syringe IV PRN ×2 (17:40)
[2018-03-27] MEDS: sodium chloride 0.45% 1,000 ML IV SCH (18:00)
[2018-03-27] MEDS: metoprolol tartrate 25mg tablet PO SCH (20:13)
[2018-03-27] MEDS: insulin glargine (Lantus) pen - multi-dose SQ SCH (21:31)
[2018-03-28] VITALS (19 sets, daily range): BP systolic 114–160; BP diastolic 59–83
[2018-03-28] MEDS: ceFAZolin 1GM/D5W- ADD-VANTAGE 50 ML IV SCH (00:19)
[2018-03-28 03:54] LABS: BASOPHILS % (AUTO) 0 % (0-1); EOSINOPHILS % (AUTO) 0 % (0-6); HEMATOCRIT 24.7 % (42.0-52.0); HEMOGLOBIN 8.4 g/dl (14.0-17.9); LYMPHOCYTES # (AUTO) 0.6 X10'3 (1.1-4.8); LYMPHOCYTES % (AUTO) 5.6 % (21-51); MEAN CORPUSCULAR HEMOGLOBIN 35.2 PG (27.0-31.0); MEAN CORPUSCULAR HGB CONC 33.9 % (33.0-36.5); MEAN CORPUSCULAR VOLUME 103.8 FL (78-98); MEAN PLATELET VOLUME 8.7 FL (7.4-10.4); MONOCYTES # (AUTO) 0.8 X10'3 (0-0.9); MONOCYTES % (AUTO) 7.4 % (2-12); NEUTROPHILS # (AUTO) 9.6 X10'3 (1.8-7.7); PLATELET COUNT 116 X10'3 (140-440); RED BLOOD COUNT 2.39 X10'6 (4.70-6.10); RED CELL DISTRIBUTION WIDTH 14.7 % (11.5-14.5); WHITE BLOOD COUNT 11.1 X10'3 (4.5-11.0)
[2018-03-28 04:06] LABS: ALBUMIN 3.2 G/DL (3.4-5.0); ANION GAP 6 (8-16); BLOOD UREA NITROGEN 24 MG/DL (7-18); BUN/CREATININE RATIO 28.2 (5.4-32.0); CALCIUM 8.6 MG/DL (8.5-10.1); CHLORIDE 103 MMOL/L (99-107); CREATININE 0.85 MG/DL (0.60-1.10); GLUCOSE 143 MG/DL (70-104); MAGNESIUM 2.2 MG/DL (1.5-2.4); PHOSPHORUS 3.5 MG/DL (2.3-4.5); POTASSIUM 4.5 MMOL/L (3.5-5.1); SODIUM 136 MMOL/L (135-145); eGFR 88 ML/MIN
[2018-03-28] MEDS: atorvastatin 10mg tablet PO SCH (08:58)
[2018-03-28] MEDS: aspirin 325mg tablet, delayed-release (Ecotrin) PO SCH (08:58)
[2018-03-28] MEDS: metoprolol tartrate 25mg tablet PO SCH (08:59)
[2018-03-28] MEDS: HYDROcodone/acetaminophen 10/325mg tab PO PRN (08:59)
[2018-03-28] MEDS: pantoprazole 40mg Tablet.DR PO SCH (08:59)
[2018-03-28] MEDS: docusate sod 100mg capsule PO SCH ×2 (08:59→20:39)
[2018-03-28] MEDS: mupirocin 2% nasal ointment 1gm UD NS SCH (09:02)
[2018-03-28] MEDS: insulin Lispro (HumaLOG) vial - multi-dose SQ SCH ×2 (09:04→14:04)
[2018-03-28] MEDS ORDERED: furosemide 40mg/4ml inj IV ONE (10:05)
[2018-03-28] MEDS ORDERED: magnesium 4gm in 100ml NS 100 ML IV PRN (10:10)
[2018-03-28] MEDS ORDERED: potassium Cl 40MEQ/NS 500ml 500 ML IV PRN ×2 (10:10)
[2018-03-28] MEDS ORDERED: magnesium Cl slow-release 64mg tablet PO PRN (10:10)
[2018-03-28] MEDS ORDERED: magnesium 1gm/100ml D5W IVPB 100 ML IV PRN (10:10)
[2018-03-28] MEDS ORDERED: potassium Cl 20 mEq SR tablet PO PRN ×2 (10:10)
[2018-03-28] MEDS: potassium Cl 20 mEq SR tablet PO SCH (20:00)
[2018-03-28] MEDS: magnesium Cl slow-release 64mg tablet PO SCH (20:00)
[2018-03-28] MEDS: carvedilol 6.25mg tablet PO SCH (20:39)
[2018-03-28] MEDS: Terazosin 1mg capsule PO SCH (20:39)
[2018-03-28] MEDS: insulin glargine (Lantus) pen - multi-dose SQ SCH (21:00)
[2018-03-29 03:00] VITALS: BP 153/73
[2018-03-29 06:27] LABS: BASOPHILS % (AUTO) 0 % (0-1); EOSINOPHILS % (AUTO) 0 % (0-6); HEMATOCRIT 24.7 % (42.0-52.0); HEMOGLOBIN 8.5 g/dl (14.0-17.9); LYMPHOCYTES # (AUTO) 0.5 X10'3 (1.1-4.8); LYMPHOCYTES % (AUTO) 5.3 % (21-51); MEAN CORPUSCULAR HEMOGLOBIN 35.1 PG (27.0-31.0); MEAN CORPUSCULAR HGB CONC 34.5 % (33.0-36.5); MEAN CORPUSCULAR VOLUME 101.9 FL (78-98); MEAN PLATELET VOLUME 9.8 FL (7.4-10.4); MONOCYTES # (AUTO) 0.8 X10'3 (0-0.9); MONOCYTES % (AUTO) 8.7 % (2-12); NEUTROPHILS # (AUTO) 7.6 X10'3 (1.8-7.7); PLATELET COUNT 111 X10'3 (140-440); RED BLOOD COUNT 2.43 X10'6 (4.70-6.10); RED CELL DISTRIBUTION WIDTH 13.8 % (11.5-14.5); WHITE BLOOD COUNT 8.8 X10'3 (4.5-11.0)
[2018-03-29 06:37] LABS: ALBUMIN 2.8 G/DL (3.4-5.0); ANION GAP 4 (8-16); BLOOD UREA NITROGEN 20 MG/DL (7-18); BUN/CREATININE RATIO 22.5 (5.4-32.0); CALCIUM 8.6 MG/DL (8.5-10.1); CHLORIDE 102 MMOL/L (99-107); CREATININE 0.89 MG/DL (0.60-1.10); GLUCOSE 134 MG/DL (70-104); MAGNESIUM 1.8 MG/DL (1.5-2.4); POTASSIUM 4.1 MMOL/L (3.5-5.1); SODIUM 137 MMOL/L (135-145); TOTAL CARBON DIOXIDE 30.9 MMOL/L (24-32); eGFR 83 ML/MIN
[2018-03-29 07:00] VITALS: BP 134/64
[2018-03-29] MEDS: magnesium Cl slow-release 64mg tablet PO SCH ×2 (08:00→20:03)
[2018-03-29] MEDS: K and/or MAG REPLACEMENT MC SCH (08:00)
[2018-03-29] MEDS: potassium Cl 20 mEq SR tablet PO SCH ×2 (08:00→20:00)
[2018-03-29] MEDS: carvedilol 6.25mg tablet PO SCH ×2 (08:16→20:03)
[2018-03-29] MEDS: docusate sod 100mg capsule PO SCH ×2 (08:16→20:04)
[2018-03-29] MEDS: pantoprazole 40mg Tablet.DR PO SCH (08:16)
[2018-03-29] MEDS: clopidogrel 75mg tablet PO SCH (08:16)
[2018-03-29] MEDS: aspirin 81mg tablet.DR PO SCH (08:16)
[2018-03-29] MEDS: atorvastatin 10mg tablet PO SCH (08:16)
[2018-03-29] MEDS: insulin Lispro (HumaLOG) vial - multi-dose SQ SCH ×3 (08:23→20:02)
[2018-03-29 11:00] VITALS: BP 134/62
[2018-03-29] MEDS ORDERED: furosemide 40mg/4ml inj IV ONE (12:40)
[2018-03-29 15:00] VITALS: BP 158/63
[2018-03-29 19:00] VITALS: BP 120/62
[2018-03-29] MEDS: insulin glargine (Lantus) pen - multi-dose SQ SCH (21:00)
[2018-03-29] MEDS: Terazosin 1mg capsule PO SCH (21:23)
[2018-03-29 23:00] VITALS: BP 135/59
[2018-03-30 03:00] VITALS: BP 129/68
[2018-03-30 06:19] LABS: BASOPHILS % (AUTO) 0.4 % (0-1); EOSINOPHILS % (AUTO) 0.2 % (0-6); HEMATOCRIT 24.2 % (42.0-52.0); HEMOGLOBIN 8.4 g/dl (14.0-17.9); LYMPHOCYTES % (AUTO) 12.6 % (21-51); MEAN CORPUSCULAR HEMOGLOBIN 35.3 PG (27.0-31.0); MEAN CORPUSCULAR HGB CONC 34.6 % (33.0-36.5); MEAN CORPUSCULAR VOLUME 102.2 FL (78-98); MEAN PLATELET VOLUME 9.4 FL (7.4-10.4); MONOCYTES # (AUTO) 0.7 X10'3 (0-0.9); MONOCYTES % (AUTO) 9.8 % (2-12); NEUTROPHILS # (AUTO) 5.9 X10'3 (1.8-7.7); PLATELET COUNT 126 X10'3 (140-440); RED BLOOD COUNT 2.37 X10'6 (4.70-6.10); RED CELL DISTRIBUTION WIDTH 14.2 % (11.5-14.5); WHITE BLOOD COUNT 7.7 X10'3 (4.5-11.0)
[2018-03-30 06:28] LABS: ALBUMIN 2.7 G/DL (3.4-5.0); ANION GAP 6 (8-16); BLOOD UREA NITROGEN 21 MG/DL (7-18); BUN/CREATININE RATIO 22.1 (5.4-32.0); CALCIUM 8.3 MG/DL (8.5-10.1); CHLORIDE 101 MMOL/L (99-107); CREATININE 0.95 MG/DL (0.60-1.10); GLUCOSE 115 MG/DL (70-104); MAGNESIUM 1.7 MG/DL (1.5-2.4); POTASSIUM 3.4 MMOL/L (3.5-5.1); SODIUM 138 MMOL/L (135-145); TOTAL CARBON DIOXIDE 31.2 MMOL/L (24-32); eGFR 77 ML/MIN
[2018-03-30 07:00] VITALS: BP 135/59
[2018-03-30] MEDS: atorvastatin 10mg tablet PO SCH (07:42)
[2018-03-30] MEDS: carvedilol 6.25mg tablet PO SCH (07:42)
[2018-03-30] MEDS: potassium Cl 20 mEq SR tablet PO SCH (07:42)
[2018-03-30] MEDS: docusate sod 100mg capsule PO SCH (07:43)
[2018-03-30] MEDS: magnesium Cl slow-release 64mg tablet PO SCH (07:43)
[2018-03-30] MEDS: pantoprazole 40mg Tablet.DR PO SCH (07:43)
[2018-03-30] MEDS: aspirin 81mg tablet.DR PO SCH (07:43)
[2018-03-30] MEDS: clopidogrel 75mg tablet PO SCH (07:43)
[2018-03-30 07:45] VITALS: BP 139/61
[2018-03-30] MEDS: K and/or MAG REPLACEMENT MC SCH (08:00)
[2018-03-30 11:00] VITALS: BP 127/61
[2018-03-30] MEDS ORDERED: COL100C PO (13:50)
[2018-03-30] MEDS ORDERED: HYDR-3972 PO (13:50)
[2018-03-30] MEDS: HYDROcodone/acetaminophen 10/325mg tab PO PRN (13:53)
[2018-03-30 15:00] VITALS: BP 146/71
== END 2018-03-30 16:35 | disposition home health service (06) | DRG 220 ==
LOC: PAS IN 05:36 → EDSTATUS 07:30 → CICU 2S 11:10 → PCU 3S 03-28 14:20
PROVIDERS: ADMIT Thoracic Surgery (Cardiothoracic Vascular Surgery); ATTEND Thoracic Surgery (Cardiothoracic Vascular Surgery)
PROC: 02RF08Z Replacement of Aortic Valve with Zooplastic Tissue, Open Approach (ICD-10-PCS; 2018-03-26)
PROC: B24BZZ4 Ultrasonography of Heart with Aorta, Transesophageal (ICD-10-PCS; 2018-03-26)
PROC: 5A1221Z Performance of Cardiac Output, Continuous (ICD-10-PCS; 2018-03-26)
PROC: 4A133B3 Monitoring of Arterial Pressure, Pulmonary, Percutaneous Approach (ICD-10-PCS; 2018-03-26)
PROC: 02HQ32Z Insertion of Monitoring Device into Right Pulmonary Artery, Percutaneous Approach (ICD-10-PCS; 2018-03-26)
PROC: 05HM33Z Insertion of Infusion Device into Right Internal Jugular Vein, Percutaneous Approach (ICD-10-PCS; 2018-03-26)
PROC: B543ZZA Ultrasonography of Right Jugular Veins, Guidance (ICD-10-PCS; 2018-03-26)
PROC: 02100Z9 Bypass Coronary Artery, One Artery from Left Internal Mammary, Open Approach (ICD-10-PCS; principal; 2018-03-26 07:00)
DX: I35.0 Nonrheumatic aortic (valve) stenosis (principal); D62 Acute posthemorrhagic anemia; I25.10 Atherosclerotic heart disease of native coronary artery without angina pectoris; E78.5 Hyperlipidemia, unspecified; I10 Essential (primary) hypertension; E87.70 Fluid overload, unspecified; N40.0 Benign prostatic hyperplasia without lower urinary tract symptoms; F17.200 Nicotine dependence, unspecified, uncomplicated; Z88.2 Allergy status to sulfonamides; Z79.02 Long term (current) use of antithrombotics/antiplatelets; Z79.899 Other long term (current) drug therapy; Z86.73 Personal history of transient ischemic attack (TIA), and cerebral infarction without residual deficits
CPT/HCPCS: 0232T; 93312; 93325; 36415; 36600; 71045; 80048; 80053; 81003; 82330; 82435; 82803; 82947; 82948; 83036; 83735; 84100; 84132; 84295; 85018; 85025; 85347; 85384; 85610; 85730; 86885; 86900; 86901; 86920; 87070; 88300; 93005; 93880; 93971; 94002; 94060; 94150; 94640; 94760; 97110; 97116; 97162; 97530; A6213; A6255; A6257; A6258; A6402; A6449; A7000; A7048; C1751; J0171; J0690; J1644; J1815; J1940; J2001; J2060; J2150; J2250; J2270; J2370; J2440; J2720; J2930; J3370; J3475; J3480; J3490; J7030; J7120; P9045; P9047

== ENCOUNTER 2018-03-31 12:59 | Inpatient (IN) | payer MEDICARE ==
[~2018-03-31] VITALS: Ht 180.3 cm; Wt 83.4 kg
[~2018-03-31 12:59] MED LIST changes: -AMLO5TAB16 PO; +COL100C PO; -Cefazolin 2GM/50ML dext iso,osmotic IVPB IV ONE; -DOCUMENT DATE & TIME OF BETA-BLOCKER PO ONE; +HYDR-3972 PO; -LORazepam 2 mg/ml vial IV ONE; -VANCOMYCIN INJ 1000 MG in NORMAL SALINE 250ml IV.SOLN IV ONE; -albuterol 2.5 MG/3 ML nebule NEB ONE; -dextrose 50%-water 50ml dispensing syringe IV PRN; -famotidine 20mg tablet PO ONE; -insulin Lispro (HumaLOG) vial - multi-dose SQ PRN; -metoprolol tartrate 12.5mg (1/2 tablet) PO ONE; -mupirocin 2% nasal ointment 1gm UD NS ONE; +pantoprazole 40 MG vial IV SCH; -ringers solution, lacted 1,000 ML IV SCH
[2018-03-31 13:35] LABS: BASOPHILS % (AUTO) 0.1 % (0-1); EOSINOPHILS # (AUTO) 0.1 X10'3 (0-0.9); EOSINOPHILS % (AUTO) 0.8 % (0-6); HEMATOCRIT 25.2 % (42.0-52.0); HEMOGLOBIN 8.6 g/dl (14.0-17.9); LYMPHOCYTES # (AUTO) 0.7 X10'3 (1.1-4.8); LYMPHOCYTES % (AUTO) 8.6 % (21-51); MEAN CORPUSCULAR HEMOGLOBIN 35.3 PG (27.0-31.0); MEAN CORPUSCULAR HGB CONC 34.2 % (33.0-36.5); MEAN CORPUSCULAR VOLUME 103.2 FL (78-98); MEAN PLATELET VOLUME 9.5 FL (7.4-10.4); MONOCYTES # (AUTO) 0.6 X10'3 (0-0.9); MONOCYTES % (AUTO) 7.1 % (2-12); NEUTROPHILS # (AUTO) 6.9 X10'3 (1.8-7.7); NEUTROPHILS % (AUTO) 83.4 % (42-75); PLATELET COUNT 180 X10'3 (140-440); RED BLOOD COUNT 2.44 X10'6 (4.70-6.10); RED CELL DISTRIBUTION WIDTH 14.4 % (11.5-14.5); WHITE BLOOD COUNT 8.3 X10'3 (4.5-11.0)
[2018-03-31 13:49] LABS: PARTIAL THROMBOPLASTIN TIME 24 SECONDS (22-32); PROTHROMBIN TIME 10.1 SECONDS (9.0-12.0)
[2018-03-31 13:53] LABS: ALANINE AMINOTRANSFERASE 18 U/L (12-78); ALBUMIN 2.7 G/DL (3.4-5.0); ALBUMIN/GLOBULIN RATIO 0.9 (1.1-1.5); ALKALINE PHOSPHATASE 52 IU/L (46-116); ANION GAP 8 (8-16); ASPARTATE AMINO TRANSFERASE 20 U/L (10-37); BILIRUBIN,TOTAL 1.1 MG/DL (0.1-1.0); BLOOD UREA NITROGEN 33 MG/DL (7-18); BUN/CREATININE RATIO 26.2 (5.4-32.0); CALCIUM 8.8 MG/DL (8.5-10.1); CHLORIDE 102 MMOL/L (99-107); CREATININE 1.26 MG/DL (0.60-1.10); GLUCOSE 217 MG/DL (70-104); POTASSIUM 4.3 MMOL/L (3.5-5.1); SODIUM 141 MMOL/L (135-145); TOTAL CARBON DIOXIDE 30.7 MMOL/L (24-32); TOTAL PROTEIN 5.8 G/DL (6.4-8.2); eGFR 56 ML/MIN
[2018-03-31] MEDS ORDERED: ipratropium 0.5 MG/2.5ML nebule IH ONE (13:55)
[2018-03-31] MEDS ORDERED: albuterol 2.5 MG/3 ML nebule CONTNEB PRN (13:55)
[2018-03-31] MEDS ORDERED: furosemide 40mg/4ml inj IV ONE (14:20)
[2018-03-31] MEDS ORDERED: ondansetron/PF 4mg/2ml inj IV PRN (14:55)
[2018-03-31] MEDS ORDERED: sodium phosphate inj. 30 MMOL in dextrose 5%-water 250 ML IV PRN (14:55)
[2018-03-31] MEDS ORDERED: ipratropium/albuterol 3ml nebule NEB PRN (14:55)
[2018-03-31] MEDS ORDERED: magnesium 1gm/100ml D5W IVPB 100 ML IV PRN (14:55)
[2018-03-31] MEDS ORDERED: Neutra Phos packet PO PRN (14:55)
[2018-03-31] MEDS ORDERED: acetaminophen 325mg tablet PO PRN ×2 (14:55)
[2018-03-31] MEDS ORDERED: magnesium 4gm in 100ml NS 100 ML IV PRN (14:55)
[2018-03-31] MEDS ORDERED: magnesium hydroxide 30ml (MOM) UD suspension PO PRN (14:55)
[2018-03-31] MEDS ORDERED: potassium Cl 20 mEq SR tablet PO PRN (14:55)
[2018-03-31] MEDS ORDERED: sodium phosphate inj. 15 MMOL in dextrose 5%-water 150 ML IV PRN (14:55)
[2018-03-31] MEDS ORDERED: magnesium Cl slow-release 64mg tablet PO PRN (14:55)
[2018-03-31] MEDS: pantoprazole 40 MG vial IV SCH (15:19)
[2018-03-31] MEDS: K, MAG and/or Phos replacement - Verify level? MC SCH (17:00)
[2018-03-31 17:06] LABS: ABG BASE EXCESS 2.2 mmol/L (-2.0-3.0); ABG HCO3 25.1 mmol/L (22.0-26.0); ABG OXYGEN SATURATION 96.3 % (95-98); ABG PCO2 (T) 32.1 mmHg (35.0-48.0); ABG PH (T) 7.509 (7.350-7.450); ABG PO2 (T) 84.8 mmHg (83-108); ALLEN'S TEST Positive; FCOHb 0.3 % (0.5-1.5); FLOW 2 L/min; FMetHb 0.1 % (0.3-1.12); FO2Hb 95.9 % (94-100); PATIENT TEMPERATURE 36.6; TOTAL HEMOGLOBIN 9.5 G/dl (14.0-18.0)
[2018-03-31 18:08] LABS: PHOSPHORUS 5.3 MG/DL (2.3-4.5)
[2018-03-31] MEDS: clopidogrel 75mg tablet PO SCH (18:32)
[2018-03-31] MEDS: atorvastatin 10mg tablet PO SCH (18:32)
[2018-03-31] MEDS: aspirin 81mg tab.chew PO SCH (18:32)
[2018-03-31 19:00] VITALS: BP 98/67
[2018-03-31] MEDS: docusate sod 100mg capsule PO SCH ×2 (19:42→19:56)
[2018-03-31 20:00] VITALS: BP 110/64
[2018-03-31] MEDS ORDERED: heparin, porcine 5000 units/ml vial SQ SCH (20:00)
[2018-03-31 21:00] VITALS: BP 105/58
[2018-03-31 22:00] VITALS: BP 86/56
[2018-03-31 23:00] VITALS: BP 96/55
[2018-04-01] VITALS (24 sets, daily range): BP systolic 84–145; BP diastolic 48–66
[2018-04-01 00:53] LABS: CLARITY,URINE CLEAR (Clear); COLOR,URINE YELLOW (Yellow); GLUCOSE, URINE NEGATIVE (Neg); KETONES,URINE NEGATIVE (Neg); LEUKOCYTE ESTERASE ,URINE NEGATIVE (Neg); NITRITES, URINE NEGATIVE (Neg); OCCULT BLOOD,URINE LARGE (Neg); PH,URINE 5.5 (4.8-8.0); PROTEIN,URINE NEGATIVE (Neg); UROBILINOGEN,URINE 0.2 E.U/dL (0.2-1.0)
[2018-04-01 00:55] LABS: UA COLLECTION TYPE URINAL
[2018-04-01 01:00] LABS: BACTERIA,URINE FEW /HPF (Neg); MUCUS STRANDS FEW /LPF (Neg); RBC,URINE TNTC /HPF (0-2); SQUAMOUS EPITHELIAL CELL,UR FEW /LPF (FEW); WBC,URINE 0-4 /HPF (0-4)
[2018-04-01 01:57] LABS: ALANINE AMINOTRANSFERASE 19 U/L (12-78); ALBUMIN 2.5 G/DL (3.4-5.0); ALBUMIN/GLOBULIN RATIO 0.9 (1.1-1.5); ALKALINE PHOSPHATASE 39 IU/L (46-116); ANION GAP 6 (8-16); ASPARTATE AMINO TRANSFERASE 14 U/L (10-37); BILIRUBIN,TOTAL 0.9 MG/DL (0.1-1.0); BLOOD UREA NITROGEN 31 MG/DL (7-18); BUN/CREATININE RATIO 27.9 (5.4-32.0); CALCIUM 8.1 MG/DL (8.5-10.1); CHLORIDE 101 MMOL/L (99-107); CREATININE 1.11 MG/DL (0.60-1.10); GLUCOSE 105 MG/DL (70-104); POTASSIUM 3.5 MMOL/L (3.5-5.1); SODIUM 138 MMOL/L (135-145); TOTAL CARBON DIOXIDE 31.3 MMOL/L (24-32); TOTAL PROTEIN 5.2 G/DL (6.4-8.2); eGFR 64 ML/MIN
[2018-04-01 02:00] LABS: MAGNESIUM 1.8 MG/DL (1.5-2.4); PHOSPHORUS 4.4 MG/DL (2.3-4.5)
[2018-04-01 02:07] LABS: BASOPHILS % (AUTO) 0.1 % (0-1); EOSINOPHILS # (AUTO) 0.2 X10'3 (0-0.9); EOSINOPHILS % (AUTO) 3.3 % (0-6); HEMATOCRIT 22.3 % (42.0-52.0); HEMOGLOBIN 7.7 g/dl (14.0-17.9); LYMPHOCYTES # (AUTO) 1.2 X10'3 (1.1-4.8); LYMPHOCYTES % (AUTO) 18.4 % (21-51); MEAN CORPUSCULAR HEMOGLOBIN 35.6 PG (27.0-31.0); MEAN CORPUSCULAR HGB CONC 34.3 % (33.0-36.5); MEAN CORPUSCULAR VOLUME 103.8 FL (78-98); MEAN PLATELET VOLUME 9.3 FL (7.4-10.4); MONOCYTES # (AUTO) 0.9 X10'3 (0-0.9); MONOCYTES % (AUTO) 13.8 % (2-12); NEUTROPHILS % (AUTO) 64.4 % (42-75); PLATELET COUNT 152 X10'3 (140-440); RED BLOOD COUNT 2.15 X10'6 (4.70-6.10); WHITE BLOOD COUNT 6.3 X10'3 (4.5-11.0)
[2018-04-01] MEDS: docusate sod 100mg capsule PO SCH ×3 (07:39→20:00)
[2018-04-01] MEDS: pantoprazole 40 MG vial IV SCH (07:39)
[2018-04-01] MEDS: atorvastatin 10mg tablet PO SCH (07:39)
[2018-04-01] MEDS: aspirin 81mg tab.chew PO SCH (07:40)
[2018-04-01] MEDS: clopidogrel 75mg tablet PO SCH (07:40)
[2018-04-01] MEDS: K, MAG and/or Phos replacement - Verify level? MC SCH (07:47)
[2018-04-01 10:53] LABS: HEMATOCRIT 22.8 % (42.0-52.0); HEMOGLOBIN 7.7 g/dl (14.0-17.9); MEAN CORPUSCULAR HEMOGLOBIN 34.8 PG (27.0-31.0); MEAN CORPUSCULAR HGB CONC 33.8 % (33.0-36.5); MEAN CORPUSCULAR VOLUME 103.1 FL (78-98); PLATELET COUNT 166 X10'3 (140-440); RED BLOOD COUNT 2.22 X10'6 (4.70-6.10); RED CELL DISTRIBUTION WIDTH 13.8 % (11.5-14.5); WHITE BLOOD COUNT 6.8 X10'3 (4.5-11.0)
[2018-04-02] VITALS (12 sets, daily range): BP systolic 93–141; BP diastolic 58–73
[2018-04-02 05:37] LABS: BASOPHILS % (AUTO) 0.3 % (0-1); EOSINOPHILS # (AUTO) 0.2 X10'3 (0-0.9); EOSINOPHILS % (AUTO) 3.8 % (0-6); HEMATOCRIT 23.8 % (42.0-52.0); HEMOGLOBIN 8.2 g/dl (14.0-17.9); LYMPHOCYTES # (AUTO) 1.1 X10'3 (1.1-4.8); LYMPHOCYTES % (AUTO) 18.1 % (21-51); MEAN CORPUSCULAR HEMOGLOBIN 34.8 PG (27.0-31.0); MEAN CORPUSCULAR HGB CONC 34.3 % (33.0-36.5); MEAN CORPUSCULAR VOLUME 101.3 FL (78-98); MONOCYTES # (AUTO) 0.9 X10'3 (0-0.9); MONOCYTES % (AUTO) 14.9 % (2-12); NEUTROPHILS % (AUTO) 62.9 % (42-75); PLATELET COUNT 204 X10'3 (140-440); RED BLOOD COUNT 2.35 X10'6 (4.70-6.10); RED CELL DISTRIBUTION WIDTH 14.1 % (11.5-14.5); WHITE BLOOD COUNT 6.3 X10'3 (4.5-11.0)
[2018-04-02 06:12] LABS: ALANINE AMINOTRANSFERASE 12 U/L (12-78); ALBUMIN 2.4 G/DL (3.4-5.0); ALBUMIN/GLOBULIN RATIO 0.8 (1.1-1.5); ALKALINE PHOSPHATASE 43 IU/L (46-116); ANION GAP 8 (8-16); ASPARTATE AMINO TRANSFERASE 10 U/L (10-37); BILIRUBIN,TOTAL 0.9 MG/DL (0.1-1.0); BLOOD UREA NITROGEN 22 MG/DL (7-18); BUN/CREATININE RATIO 22.2 (5.4-32.0); CALCIUM 8.3 MG/DL (8.5-10.1); CHLORIDE 102 MMOL/L (99-107); CREATININE 0.99 MG/DL (0.60-1.10); GLUCOSE 107 MG/DL (70-104); MAGNESIUM 1.9 MG/DL (1.5-2.4); PHOSPHORUS 3.3 MG/DL (2.3-4.5); POTASSIUM 3.2 MMOL/L (3.5-5.1); SODIUM 139 MMOL/L (135-145); TOTAL PROTEIN 5.4 G/DL (6.4-8.2); eGFR 73 ML/MIN
[2018-04-02] MEDS: aspirin 81mg tab.chew PO SCH (07:27)
[2018-04-02] MEDS: atorvastatin 10mg tablet PO SCH (07:27)
[2018-04-02] MEDS: clopidogrel 75mg tablet PO SCH (07:27)
[2018-04-02] MEDS: docusate sod 100mg capsule PO SCH (07:27)
[2018-04-02] MEDS: K, MAG and/or Phos replacement - Verify level? MC SCH (07:29)
[2018-04-02] MEDS ORDERED: pantoprazole 40mg Tablet.DR PO SCH (07:30)
[2018-04-02] MEDS: potassium Cl 20 mEq SR tablet PO PRN ×2 (07:34→11:36)
[2018-04-02] MEDS ORDERED: FURO40TA4 PO (11:42)
== END 2018-04-02 11:40 | disposition home health service (06) | DRG 190 ==
LOC: ER 12:59 → ED HOLD 14:52 → CICU 2S 16:42
PROC: 5A09357 Assistance with Respiratory Ventilation, Less than 24 Consecutive Hours, Continuous Positive Airway Pressure (ICD-10-PCS; principal; 2018-03-31)
DX: J44.1 Chronic obstructive pulmonary disease with (acute) exacerbation (principal); I21.A1 Myocardial infarction type 2; I25.10 Atherosclerotic heart disease of native coronary artery without angina pectoris; Z95.2 Presence of prosthetic heart valve; R06.03 Acute respiratory distress; E78.5 Hyperlipidemia, unspecified; F41.9 Anxiety disorder, unspecified; I10 Essential (primary) hypertension; N40.0 Benign prostatic hyperplasia without lower urinary tract symptoms; Z95.1 Presence of aortocoronary bypass graft; Z88.2 Allergy status to sulfonamides; Z79.899 Other long term (current) drug therapy; Z79.82 Long term (current) use of aspirin; Z87.891 Personal history of nicotine dependence; Z86.73 Personal history of transient ischemic attack (TIA), and cerebral infarction without residual deficits
CPT/HCPCS: 36415; 36600; 71045; 80053; 81001; 82803; 82948; 83735; 83880; 84100; 84145; 84484; 85018; 85025; 85027; 85610; 85730; 87070; 93005; 93306; 94640; 94660; 94760; 96374; 99291; A6213; C9113; J1644; J1940

== ENCOUNTER 2018-05-05 18:35 | Inpatient (IN) | payer MEDICARE ==
[~2018-05-05] VITALS: Ht 180.3 cm; Wt 63.9 kg
[~2018-05-05 18:35] MED LIST changes: +FURO40TA4 PO; -TERA2CAP4 PO; -pantoprazole 40 MG vial IV SCH
[2018-05-05 19:11] LABS: BASOPHILS # (AUTO) 0.1 X10'3 (0-0.2); EOSINOPHILS # (AUTO) 0.4 X10'3 (0-0.9); EOSINOPHILS % (AUTO) 5.1 % (0-6); HEMATOCRIT 34.9 % (42.0-52.0); HEMOGLOBIN 11.7 g/dl (14.0-17.9); LYMPHOCYTES # (AUTO) 1.3 X10'3 (1.1-4.8); LYMPHOCYTES % (AUTO) 18.3 % (21-51); MEAN CORPUSCULAR HEMOGLOBIN 33.5 PG (27.0-31.0); MEAN CORPUSCULAR HGB CONC 33.4 % (33.0-36.5); MEAN CORPUSCULAR VOLUME 100.2 FL (78-98); MEAN PLATELET VOLUME 7.6 FL (7.4-10.4); MONOCYTES # (AUTO) 0.6 X10'3 (0-0.9); MONOCYTES % (AUTO) 9.2 % (2-12); NEUTROPHILS # (AUTO) 4.6 X10'3 (1.8-7.7); NEUTROPHILS % (AUTO) 66.4 % (42-75); PLATELET COUNT 261 X10'3 (140-440); RED BLOOD COUNT 3.48 X10'6 (4.70-6.10); RED CELL DISTRIBUTION WIDTH 14.7 % (11.5-14.5); WHITE BLOOD COUNT 6.9 X10'3 (4.5-11.0)
[2018-05-05 19:19] LABS: ALANINE AMINOTRANSFERASE 13 U/L (12-78); ALBUMIN 3.1 G/DL (3.4-5.0); ALBUMIN/GLOBULIN RATIO 0.8 (1.1-1.5); ALKALINE PHOSPHATASE 85 IU/L (46-116); ANION GAP 14 (8-16); ASPARTATE AMINO TRANSFERASE 11 U/L (10-37); BILIRUBIN,TOTAL 0.4 MG/DL (0.1-1.0); BLOOD UREA NITROGEN 12 MG/DL (7-18); BUN/CREATININE RATIO 14.6 (5.4-32.0); CALCIUM 9.1 MG/DL (8.5-10.1); CHLORIDE 105 MMOL/L (99-107); CREATININE 0.82 MG/DL (0.60-1.10); GLUCOSE 91 MG/DL (70-104); POTASSIUM 3.5 MMOL/L (3.5-5.1); SODIUM 142 MMOL/L (135-145); TOTAL CARBON DIOXIDE 23.3 MMOL/L (24-32); eGFR > 90 ML/MIN
[2018-05-05 19:22] LABS: PARTIAL THROMBOPLASTIN TIME 28 SECONDS (22-32); PROTHROMBIN TIME 9.9 SECONDS (9.0-12.0); TROPONIN I < 0.04 NG/ML (0.0-0.05)
[2018-05-05] MEDS ORDERED: iohexol 350MG/ML 100ml bottle IV ONE (19:29)
[2018-05-05] MEDS ORDERED: aspirin 81mg tablet.DR PO ONE (19:50)
[2018-05-05] MEDS ORDERED: TERA2CAP4 PO (19:53)
[2018-05-05] MEDS ORDERED: metoprolol tartrate 50mg tablet PO ONE (20:25)
[2018-05-05] MEDS ORDERED: labetalol 20mg/4ml (5mg/ml) syringe IV ONE (20:25)
[2018-05-05] MEDS ORDERED: magnesium hydroxide 30ml (MOM) UD suspension PO PRN (22:20)
[2018-05-05] MEDS ORDERED: acetaminophen 325mg tablet PO PRN (22:20)
[2018-05-05] MEDS ORDERED: mag hydrox/Alum hydrox/simeth 30ml oral suspension PO PRN (22:20)
[2018-05-05] MEDS ORDERED: ondansetron/PF 4mg/2ml inj IV PRN (22:20)
[2018-05-05 23:00] VITALS: BP 165/98
[2018-05-06 02:00] VITALS: BP 161/64
[2018-05-06 06:55] VITALS: BP 166/72
[2018-05-06 07:26] LABS: BASOPHILS % (AUTO) 0.6 % (0-1); EOSINOPHILS # (AUTO) 0.3 X10'3 (0-0.9); EOSINOPHILS % (AUTO) 5.4 % (0-6); HEMATOCRIT 32.9 % (42.0-52.0); HEMOGLOBIN 10.9 g/dl (14.0-17.9); LYMPHOCYTES # (AUTO) 1.1 X10'3 (1.1-4.8); LYMPHOCYTES % (AUTO) 20.5 % (21-51); MEAN PLATELET VOLUME 8.1 FL (7.4-10.4); MONOCYTES # (AUTO) 0.5 X10'3 (0-0.9); MONOCYTES % (AUTO) 9.9 % (2-12); NEUTROPHILS # (AUTO) 3.5 X10'3 (1.8-7.7); NEUTROPHILS % (AUTO) 63.6 % (42-75); PLATELET COUNT 248 X10'3 (140-440); RED BLOOD COUNT 3.29 X10'6 (4.70-6.10); RED CELL DISTRIBUTION WIDTH 14.6 % (11.5-14.5); WHITE BLOOD COUNT 5.5 X10'3 (4.5-11.0)
[2018-05-06 07:52] LABS: ALANINE AMINOTRANSFERASE 12 U/L (12-78); ALBUMIN 2.7 G/DL (3.4-5.0); ALBUMIN/GLOBULIN RATIO 0.8 (1.1-1.5); ALKALINE PHOSPHATASE 77 IU/L (46-116); ANION GAP 10 (8-16); ASPARTATE AMINO TRANSFERASE 12 U/L (10-37); BILIRUBIN,TOTAL 0.4 MG/DL (0.1-1.0); BLOOD UREA NITROGEN 8 MG/DL (7-18); BUN/CREATININE RATIO 9.5 (5.4-32.0); CALCIUM 8.2 MG/DL (8.5-10.1); CHLORIDE 104 MMOL/L (99-107); CHOL/HDL RATIO 1.8 (0.00-4.99); CHOLESTEROL 158 MG/DL (0-200); CREATININE 0.84 MG/DL (0.60-1.10); GLUCOSE 94 MG/DL (70-104); HDL CHOLESTEROL 88 MG/DL (35-60); LDL CHOLESTEROL 70 MG/DL (50-100); POTASSIUM 3.8 MMOL/L (3.5-5.1); SODIUM 140 MMOL/L (135-145); TOTAL CARBON DIOXIDE 25.6 MMOL/L (24-32); TRIGLYCERIDES 42 MG/DL (20-135); eGFR 89 ML/MIN
[2018-05-06] MEDS ORDERED: heparin, porcine 5000 units/ml vial SQ SCH (08:00)
[2018-05-06] MEDS ORDERED: carVEDilol 12.5mg tablet PO SCH (08:00)
[2018-05-06] MEDS ORDERED: atorvastatin 10mg tablet PO SCH (08:00)
[2018-05-06] MEDS ORDERED: clopidogrel 75mg tablet PO SCH (08:00)
[2018-05-06] MEDS ORDERED: docusate sod 100mg capsule PO SCH (08:00)
[2018-05-06] MEDS ORDERED: atorvastatin 20mg tablet PO SCH (08:00)
[2018-05-06] MEDS ORDERED: aspirin 81mg tab.chew PO SCH (08:00)
[2018-05-06 10:45] VITALS: BP 184/55
[2018-05-06] MEDS ORDERED: CARV-50 PO (12:58)
[2018-05-06] MEDS ORDERED: ATOR20TA66 PO (12:58)
[2018-05-06] MEDS ORDERED: CLOP75TA15 PO (12:58)
== END 2018-05-06 14:55 | disposition home or self-care (01) | DRG 69 ==
LOC: ER 18:35 → ORTHO 4S 22:16 → CMPBEDREQ 23:15
PROVIDERS: ADMIT Internal Medicine; ATTEND Family Medicine
PROC: B3251ZZ Computerized Tomography (CT Scan) of Bilateral Common Carotid Arteries using Low Osmolar Contrast (ICD-10-PCS; principal; 2018-05-05)
PROC: B32G1ZZ Computerized Tomography (CT Scan) of Bilateral Vertebral Arteries using Low Osmolar Contrast (ICD-10-PCS; 2018-05-05)
PROC: B32R1ZZ Computerized Tomography (CT Scan) of Intracranial Arteries using Low Osmolar Contrast (ICD-10-PCS; 2018-05-05)
PROC: B3281ZZ Computerized Tomography (CT Scan) of Bilateral Internal Carotid Arteries using Low Osmolar Contrast (ICD-10-PCS; 2018-05-05)
DX: G45.9 Transient cerebral ischemic attack, unspecified (principal); E78.5 Hyperlipidemia, unspecified; I10 Essential (primary) hypertension; I25.10 Atherosclerotic heart disease of native coronary artery without angina pectoris; I73.9 Peripheral vascular disease, unspecified; N40.0 Benign prostatic hyperplasia without lower urinary tract symptoms; Z95.1 Presence of aortocoronary bypass graft; Z95.2 Presence of prosthetic heart valve; Z88.2 Allergy status to sulfonamides; Z79.899 Other long term (current) drug therapy; Z79.82 Long term (current) use of aspirin
CPT/HCPCS: 36415; 70450; 70496; 70498; 70551; 71045; 80053; 80061; 82948; 84484; 85025; 85610; 85730; 87070; 92616; 93005; 96374; 97161; 99285; J1644; J3490; Q9967